=== PATIENT | male | born 1940 | race Hispanic/Latino ===

== ENCOUNTER → 2017-12-22 | Day surgery (SDC) | payer MEDICARE ==
[2017-12-17 15:49] LABS: BASOPHILS # (AUTO) 0.1 (0.0-0.1); BASOPHILS % 1.2 % (0.0-1.0); EOSINOPHILS # (AUTO) 1.3 (0.0-0.4); EOSINOPHILS % 13.1 % (0.0-6.0); HEMATOCRIT 40.7 % (38.2-49.6); HEMOGLOBIN 14.3 g/dL (14.0-18.0); LYMPHOCYTES # (AUTO) 2.7 (1.0-3.2); LYMPHOCYTES % 27.9 % (18.0-39.1); MEAN CORPUSCULAR HEMOGLOBIN 32.4 pg (28-32); MEAN CORPUSCULAR HGB CONC 35.1 g/dL (31-35); MEAN CORPUSCULAR VOLUME 92.1 fL (81-99); MONOCYTES # (AUTO) 0.6 (0.2-0.8); MONOCYTES % 6.1 % (4.4-11.3); NEUTROPHILS # (AUTO) 4.9 (2.1-6.9); NEUTROPHILS % 51.3 % (38.7-80.0); PLATELET COUNT 257 x10e3/uL (140-360); RED BLOOD COUNT 4.42 x10e6/uL (4.3-5.7); RED CELL DISTRIBUTION WIDTH 13.2 % (11.7-14.4)
[2017-12-17 16:01] LABS: INR 1.21; PROTHROMBIN TIME 14.4 seconds (11.9-14.5)
[2017-12-17 16:02] LABS: PARTIAL THROMBOPLASTIN TIME 31.5 seconds (23.8-35.5)
[2017-12-17 16:10] LABS: ALANINE AMINOTRANSFERASE 20 IU/L (0-55); ALBUMIN 3.9 g/dL (3.5-5.0); ALKALINE PHOSPHATASE 92 IU/L (40-150); BLOOD UREA NITROGEN 6 mg/dL (7-26); BUN/CREATININE RATIO 8 (6-25); CARBON DIOXIDE 27 mmol/L (22-29); CHLORIDE 95 mmol/L (98-107); CREATININE, SERUM 0.74 mg/dL (0.72-1.25); EST GLOMERULAR FILTRATION RATE > 60 ML/MIN (60-); GLUCOSE 100 mg/dL (74-118); SODIUM 132 mmol/L (136-145)
--- NOTE | 2017-12-17 16:24 | Diagnostic Imaging Report ---
PROCEDURE: Frontal and lateral views of the chest. COMPARISON: Patients [facility], DX, CHEST SINGLE (PORTABLE), 09/23/2017, 10:52. INDICATIONS: pre op abdomen surgery FINDINGS: Lines/tubes: None. Lungs: The lungs are well inflated and clear. There is no evidence of pneumonia or pulmonary edema. Pleura: There is no pleural effusion or pneumothorax. Heart and mediastinum: The heart and the mediastinum are normal. Bones: No acute bony abnormality. Degenerative changes in the thoracic spine. IMPRESSION: 1. No acute cardiopulmonary abnormalities. Ki Rankin M.D. Dictated by: Ki Rankin M.D. on 12/17/2017 at 16:24 Electronically approved by: Ki Rankin M.D. on 12/17/2017 at 16:24
[~2017-12-22] MED LIST: BREO ELIPTA INH; CIPRO500 MG PO; FENTANYL CITRATE/PF 100MCG/2 ML INJ ONE; LIDOCAINE HCL 2% 30 ML TUBE ONE; LIDOCAINE HCL 2% LOCAL INJ 5 ML SDV VIAL INJ ONE; LIDOCAINE HCL 4% 50 ML BTL ONE; LISINOPRIL10 MG PO; MIDAZOLAM HCL 2 MG/2 ML VIAL ONE; MULTI-VITAMIN1 EACH PO; OMEPRAZOLE40 MG PO; PROAIR HFA INH8.5 GM; PROPOFOL IV EMULSION 10 MG/ML 20 ML VIAL ONE; SEVOFLURANE INHAL SOLN 250 ML PEN BTL ONE; XALATAN2.5 ML OP
--- OUTSIDE RECORDS SUMMARY | 2017-12-22 07:15 | XMS REPORT ---
Author Author [facility] Address Unknown Phone Unavailable Care Team Providers Care Executive Officer Name Role Phone SIMA GOODSON Unavailable Unavailable RYAN DOMINGUEZ Unavailable Unavailable Problems This patient has no known problems. Allergies, Adverse Reactions, Alerts This patient has no known allergies or adverse reactions. Medications This patient has no known medications. Results Test Description Test Time Test Comments Text Results Atomic Results Result Comments CHEST 2 VIEWS [place] [id number] [place] [address] Patient Name: CATARINO ROQUE MR #: [id number] : 1940 Age/Sex: 77/M Req #: [id number] [facility] Physician: Ordered by: MANUEL DOMINGUEZ MD Report #: [id number] Location: ENDO Room/Bed: Procedure: [id number] DX/CHEST 2 VIEWS Exam Date: 12/17/17 Exam Time: 1540 REPORT STATUS: Signed PROCEDURE: Frontal and lateral views of the chest. COMPARISON: [facility], , CHEST SINGLE (PORTABLE), 09/23/2017, 10:52. INDICATIONS: pre op abdomen surgery FINDINGS: Lines/tubes: None. Lungs: The lungs are well inflated and clear. There is no evidence of pneumonia or pulmonary edema. Pleura: There is no pleural effusion or pneumothorax. Heart and mediastinum: The heart and the mediastinum are normal. Bones: No acute bony abnormality. Degenerative changes in the thoracic spine. IMPRESSION: 1. No acute cardiopulmonary abnormalities. Hayes Rankin M.D. Dictated by: Hayes Rankin M.D. on 12/17 at 16:24 Electronically approved by: Hayes Rankin M.D. on 11/2017 at 16:24 Dictated By: HAYES RANKIN MD 23 Transcribed By: MIKKI on 12/17/171623 COPY TO: MANUEL DOMINGUEZ MD CHEST SINGLE (PORTABLE) [place] [address] Patient Name: CATARINO ROQUE MR #: [id number] : 1940 Age/Sex: 76/M Req #: [id number] Adm Physician: Ordered by: RYAN DOMINGUEZ MD Report #: [id number] Location: ER Room/Bed: Procedure: [id number] DX/CHEST SINGLE (PORTABLE) Exam Date: 09/23/17 Exam Time: 1105 REPORT STATUS: Signed PROCEDURE: CHEST SINGLE (PORTABLE) COMPARISON: None. INDICATIONS: CHEST HEAVINESS FINDINGS: LUNGS: No consolidations or edema. PLEURA: No effusions or pneumothorax. HEART T MEDIASTINUM: The heart is within normal size-limits. Tortuous thoracic aorta. BONES T SOFT TISSUES: No acute findings. CONCLUSION: No acute thoracic abnormality. Deni Grissom D.O. Dictated by: Deni Grissom D.O. on 04/2017 at 11:42 Electronically approved by: Deni Grissom D.O. on 04/2017 at 11:42 Dictated By: DEIN GRISSOM DO 1142 Transcribed By: MIKKI on 09/23/17 1142 COPY TO: RYAN DOMINGUEZ MD CT BRAIN WO [place] [id number] [place] [address] Patient Name: CATARINO ROQUE MR #: [id number] : 1940 Age/Sex: 76/M Req #: [id number] Adm Physician: Ordered by: RYAN DOMINGUEZ MD Report #: [id number] Location: ER Room/Bed: Procedure: [id number] CT/CT BRAIN WO Exam Date: 09/23/17 Exam Time: 1105 REPORT STATUS: Signed EXAMINATION: Head CT HISTORY: Dizziness, weakness COMPARISON: Brain MRI on 11/10/2007 TECHNIQUE: Multidetector axial images were obtained without contrast from the foramen magnum to the vertex . The images were reconstructed using brain and bone algorithms. Thin section brain images were reformatted into coronal and sagittal planes. Intravenous contrast: None. Motion/streaking artifact limits the evaluation of the skull base and posterior cranial fossa. FINDINGS: Parenchyma: 1. Few scattered white matter hypodensities , most likely mild nonspecific chronic microvascular ischemic changes. 2. No mass or hemorrhage. No CT evidence of acute territorial vascular insult. Extra-axial spaces:No abnormal density. No extra-axial fluid collections Brain volume: Normal for age. Ventricles: No hydrocephalus or displacement. Arteries: No density suggestive of thrombus. Dural sinuses: No abnormal density. Extra-axial spaces : No abnormal density. Foramen magnum: No mass, Chiari malformation, or basilar invagination. Sella: No obvious mass. Paranasal/ mastoid sinuses: Imaged portions unremarkable. Skull/Scalp: No lytic or blastic lesions. No fractures. IMPRESSION: 1. No acute intracranial hemorrhage or cortical infarct. 2. Mild age-related chronic microvascular ischemic changes Signed by: Dr. Judy Workman M.D. on 2016 11:47 AM Dictated By: JUDY WORKMAN MD 1147 Transcribed By: MARGY on 09/23/17 1147 COPY TO: RYAN DOMINGUEZ MD CT CHEST WO [place] [address] Patient Name: CATARINO ROQUE MR #: [id number] : 1940 Age/Sex: 76/M Req #: [id number] Adm Physician: Ordered by: SIMA GOODSON MD Report #: [id number] Location: CT Room/Bed: Procedure: [id number] CT/CT CHEST WO Exam Date: 07/14/17 Exam Time: 0740 REPORT STATUS: Signed PROCEDURE: CT CHEST WITHOUT CONTRAST CT scan of the chest WITHOUT intravenous contrast, using standard protocol. TECHNIQUE: The chest was scanned utilizing a multidetector helical scanner from the apex to the level of the adrenal glands. No IV contrast was administered because of her referring physician request. Coronal and sagittal multiplanar reformations were obtained. COMPARISON : Chest radiograph 11/27/2016. INDICATIONS: COUGH, ASTHMA FINDINGS: Lines/tubes: None. Lungs and Airways: Mild dependent groundglass opacities within the upper and lower lobes. Air-filled cyst in the left lower lobe and right middle lobe. No consolidation, bronchiectasis, or honeycombing. Pleura: Prominent posterior basal extrapleural fat left greater than right. No pleural effusion or pneumothorax. Heart and mediastinum: The visualized portions of the thyroid gland are normal. Atherosclerotic calcification of the aortic arch and great vessel origins. Incidental note of a common origin of the innominate and left common carotid artery from the aortic arch. Coronary artery calcifications. No axillary, hilar, or mediastinal lymphadenopathy. Soft tissues: No gross soft tissue abnormality. Abdomen: Partially visualized exophytic cyst projecting from the right kidney as seen on comparison CT abdomen and pelvis August 2016. Visualized portions of the liver, spleen, pancreas, and adrenals are otherwise unremarkable. Bones: No osseous destructive lesions. Multilevel osteophytosis of the thoracic spine. IMPRESSION: Dependent, lower lobe predominant groundglass opacities likely reflect subsegmental atelectasis, though the differential diagnosis includes mild age-related fibrotic changes. Atherosclerotic vascular disease. Dictated by : Mary Jo Green M.D. on 07/14/2017 at 8:13 Electronically approved by: Mary Jo Green M.D. on 07/14/2017 at 8:13 Dictated By: MARY JO GREEN MD 2 Transcribed By : MIKKI on 07/14/17812 COPY TO: SIMA GOODSON MD
--- NOTE | 2017-12-22 10:54 | Operative Report ---
DATE OF PROCEDURE: December 22, 2017 PROCEDURES 1. Bronchoscopy with lung biopsy. 2. Bronchoalveolar lavage, right middle lobe. 3. Bronchial washes. INDICATIONS: Chronic cough, interstitial lung disease. CONSENT: Informed consent taken from the patient. ANESTHESIA: Per anesthesiology. FINDINGS: LMA placed by anesthesiology. Fiberoptic bronchoscope was placed into the supraglottic area where a fullness was seen superior to the true and false vocal cords. Pictures were taken here. Due to LMA placement, it was limited view of the region. Thereafter, the bronchoscope was placed into the tracheobronchial tree after insertion into the glottis. Areas were bilaterally inspected. There was mild to moderate hyper-collapsable airways noted at tracheal level, and also many of the segments. However, there was no significant secretions noted. Airways were not excessively friable. The bronchoscope was wedged into the right middle lobe airways where bronchoalveolar lavage was performed. After some decrease of CO2 of collapsable airways, we then focused washings. Thereafter, some forceps biopsies were taken of the right lower lobe superior, lateral and posterior segments. Hemostasis was achieved. Thereafter, the patient was allowed to recover with anesthesia after the bronchoscope was removed. IMPRESSION 1. Mostly normal endobronchial airways with the exception of mild to moderate hyper-collapsibility at the high trachea and at some on the segmental level. 2. Supraglottic fullness also noted, not otherwise specified. Of note, there was limitation in view above the glottis due to placement of laryngeal mask airway hardware. RECOMMENDATIONS: Follow up chest x-ray after procedure. Follow up results in 10 days in the clinic. ESTIMATED BLOOD LOSS: Less than 1 mL. COMPLICATIONS: None. Job#: [id number] ALEE WARD
--- NOTE | 2017-12-22 11:05 | Diagnostic Imaging Report ---
PROCEDURE: A single AP view of the chest. COMPARISON: Chest 2 views 12/17/2017. INDICATIONS: POST BRONCH, COUGH FINDINGS: Lines/tubes: None. Lungs: Airspace opacity in the right lung base. The left lung is clear. No parenchymal mass. Pleura: There is no pleural effusion or pneumothorax. Heart and mediastinum: The heart and the mediastinum are unremarkable. Bones: No acute bony abnormality. Degenerative changes of the thoracic spine. IMPRESSION: Airspace opacity in the right lung may represent post procedure changes. Dictated by: Favio Pugh M.D. on 12/22/2017 at 11:05 Electronically approved by: Favio Pugh M.D. on 12/22/2017 at 11:06
[2017-12-22 11:08] LABS: BODY FLUID APPEARANCE TURBID; BODY FLUID COLOR RED; BODY FLUID TYPE BRONCH WASHING
[2017-12-22 11:32] LABS: RBC,BODY FLUID 3042 cells/uL; WBC,BODY FLUID 10 cells/uL
[2017-12-22 12:13] LABS: EOSINOPHILS,BODY FLUID 12 %; LYMPHOCYTES,BODY FLUID 10 %; MONO/MACROPHG,BODY FLUID 4 %; NEUTROPHILS,BODY FLUID 74 %
== END | disposition home or self-care (01) ==
LOC: ENDO 07:13
PROVIDERS: ATTEND Internal Medicine Critical Care Medicine
DX: J84.9 Interstitial pulmonary disease, unspecified (principal); R77.1 Abnormality of globulin; J30.9 Allergic rhinitis, unspecified; J45.909 Unspecified asthma, uncomplicated; J34.2 Deviated nasal septum; Z57.2 Occupational exposure to dust; K21.9 Gastro-esophageal reflux disease without esophagitis; N40.0 Benign prostatic hyperplasia without lower urinary tract symptoms; I10 Essential (primary) hypertension; Z01.810 Encounter for preprocedural cardiovascular examination; Z01.812 Encounter for preprocedural laboratory examination; Z01.818 Encounter for other preprocedural examination
CPT/HCPCS: 31624; 31628; 36415 ×2; 71045; 71046; 80053; 85025; 85610; 85730; 87070 ×2; 87102; 87116; 87205; 87206 ×2; 87252; 88305; 89051; 93005; J2001; J2250

== ENCOUNTER 2024-10-20 09:40 | Emergency (ER) | payer MEDICARE ==
[~2024-10-20] VITALS: Ht 172.7 cm; Wt 92.5 kg
[~2024-10-20 09:40] MED LIST changes: -FENTANYL CITRATE/PF 100MCG/2 ML INJ ONE; -LIDOCAINE HCL 2% 30 ML TUBE ONE; -LIDOCAINE HCL 2% LOCAL INJ 5 ML SDV VIAL INJ ONE; -LIDOCAINE HCL 4% 50 ML BTL ONE; -MIDAZOLAM HCL 2 MG/2 ML VIAL ONE; -PROPOFOL IV EMULSION 10 MG/ML 20 ML VIAL ONE; -SEVOFLURANE INHAL SOLN 250 ML PEN BTL ONE
[2024-10-20] MEDS ORDERED: SODIUM CHLORI1000 MG PO (11:01)
[2024-10-20] MEDS ORDERED: AMLODIPINE BESYL5 MG PO (11:01)
[2024-10-20] MEDS ORDERED: VITAMIN D350 MCG (11:01)
[2024-10-20] MEDS ORDERED: NEURONTIN100 MG PO (13:47)
[2024-10-20 13:57] VITALS: PULSE 82; RESP 16; TEMP 97.5; O2SAT 97
== END 2024-10-20 13:57 | disposition home or self-care (01) ==
LOC: FSED 09:48
DX: M79.605 Pain in left leg (principal); M79.604 Pain in right leg; G62.9 Polyneuropathy, unspecified; R20.0 Anesthesia of skin; I10 Essential (primary) hypertension; E78.5 Hyperlipidemia, unspecified
CPT/HCPCS: 70450; 80053; 81003; 85025; 85379; 93970; 99284